=== PATIENT | male | born 1995 | race African-American/Black ===

== ENCOUNTER 2018-12-28 21:33 | Emergency (ER) | payer SELFPAY ==
[~2018-12-28] VITALS: Ht 182.9 cm; Wt 82.0 kg
[2018-12-28] MEDS ORDERED: BACITRACIN ZINC OINT UDPKT TOP ONE (23:30)
[2018-12-28 23:37] VITALS: BP 134/77
== END 2018-12-28 23:40 | disposition home or self-care (01) ==
LOC: ER 21:33
DX: S00.81XA Abrasion of other part of head, initial encounter (principal); F12.10 Cannabis abuse, uncomplicated; V49.49XA Driver injured in collision with other motor vehicles in traffic accident, initial encounter; Y93.89 Activity, other specified; Y92.89 Other specified places as the place of occurrence of the external cause; Y99.8 Other external cause status
CPT/HCPCS: 99283